=== PATIENT | female | born 1980 | race Caucasian/White ===

== ENCOUNTER 2025-03-14 14:36 | Observation (INO) ==
[2025-03-14] MEDS ORDERED: MoRPHine SULFATE 2 MG/ML CARP IV PRN (14:48)
[2025-03-14] MEDS: MoRPHine SULFATE 4 MG/ML 1 ML CARP\\VIAL IV STA (15:09)
[2025-03-14] MEDS: ONDANSETRON INJ 2 MG/ML 2 ML VIAL IV STA (15:10)
[2025-03-14] MEDS: HYDROmorphone INJ 0.5 MG/0.5 ML SYR IV STA (15:10)
[2025-03-14] MEDS: SODIUM CHLORIDE 0.9% 500 ML IV ONE (15:10)
--- NOTE | 2025-03-14 15:12 | Emergency Department Note ---
Impression & Plan Bradycardia, Dizziness ED Provider Note NAME: BABATUNDE RETANA AGE: 45 SEX: F : 1980 ARRIVES VIA: Ambulance INFORMANT: [Patient] ED PROVIDER(S): [Shawn Delatorre MD] CHIEF COMPLAINT: Bradycardia HISTORY OF PRESENT ILLNESS: Patient is a 45-year-old female who was sent from the [facility] [place] after having a bladder sling procedure. The patient was bradycardic when she was initially seen but it was sinus bradycardia. During the procedure, her heart rate dropped to below 20 and there was a long pause and a short period of time with no pulse. She received a very small amount of push dose IV epinephrine. The patient apparently responded well and did not require CPR. The patient admits to recently feeling short of breath as well as being lightheaded and dizzy, especially with position change. She has a new watch that has been alerting her of a lower heart rate and low blood pressure. She has no known cardiac disease. No known tick bite. Currently, she complains of pain at the surgical site. She is nauseated. PMHx/PSHx/Social Hx: See Below PHYSICAL EXAM: GENERAL: Patient is in no acute distress. HEENT: No acute trauma, normocephalic atraumatic, mucous membranes moist, no nasal congestion. NECK: No stridor, no adenopathy, no meningismus, trachea is midline. LUNGS: Clear to auscultation bilaterally, no wheeze, no rhonchi, breath sounds equal. HEART: Subtle systolic murmur, regular rate and rhythm. ABDOMEN: Soft, no distention. EXTREMITIES: No cyanosis, full range of motion of all the joints without pain or difficulty. Moderate bilateral pedal edema. NEUROLOGIC: Oriented x 3, no acute motor or sensory deficits, no focal weakness. SKIN: No jaundice, no diaphoresis. DIFFERENTIAL DIAGNOSIS: Dysrhythmia, heart block, electrolyte imbalance, Lyme disease, medication reaction, among others. EMERGENCY DEPARTMENT PROCEDURES: MEDICAL DECISION MAKING: There is no leukocytosis or concerning anemia. There is a normal platelet count. No coagulopathy. There is a slight elevation of the creatinine, no electrolyte abnormality in need of emergent correction. No concerning liver enzyme elevation. BNP is not elevated making heart failure unlikely. ECG shows a sinus bradycardia, no ischemia. Cardiac enzyme testing x 1 is not consistent with acute cardiac injury. Patient appears to be in a euthyroid state. Lyme disease testing is pending. Chest x-ray does not show pneumonia, mediastinal widening or heart failure. On exam, the patient's only complaint was pain in the lower abdomen where she had her surgical procedure. She was bradycardic but not hypotensive. The patient was given a 500 cc saline bolus. She was given IV Zofran for nausea, IV Dilaudid for pain. Given the bradycardia, given the prolonged pause noted with her cardiac monitoring at the outpatient center, given the brief loss of pulse, she is in need of a hospital stay and further cardiac monitoring. She can be assessed by cardiology for the possibility of pacemaker need. Of note, the patient did apparently recently start propranolol for psychiatric reasons. Certainly, this beta-danya could be responsible for her presentation today. I spoke with the patient, I did speak with case management. The on-call hospitalist was consulted. Prior/Outside records/notes reviewed: Today's EMS notes describing her presentation and transport to this hospital. ECG per my interpretation: Indication was bradycardia. The ECG shows a sinus bradycardia with a rate of 52. There is no ST elevation, no PVCs. There is poor R wave progression. There are no PVCs. QTc is 468. Continuous Cardiac Monitoring per my interpretation: An order was placed for continuous cardiac monitoring. The monitor shows a rate of 53 with sinus bradycardia. Imaging/x-ray results per my interpretation: Chest x-ray does not show CHF, pneumonia or pneumothorax. Chronic Medical/Social conditions affecting care: None Care/Management discussed with: Case management, the on-call hospitalist. Level of care consideration(s): After review of the information above and other included data: --I believe the patient requires escalation of care to admission DISPOSITION: Admission Past Med/Surg History Problem List (Updated 03/14/25 @ 16:51 by Shawn Delatorre MD) Dizziness (Acute) Bradycardia (Acute) Medical History Anxiety Social History Smoking Status: Never smoker Preferred Language: Tuvaluan Feels Safe at Home: Yes Allergies Allergies Allergy/AdvReac Type Severity Reaction Status Date / Time cefdinir Allergy Unknown Unknown Unverified 03/14/25 16:04 metoclopramide [From Reglan] Allergy Unknown Unknown Unverified 03/14/25 16:04 morphine Allergy Unknown Unknown Unverified 03/14/25 16:04 Home Meds Home Medications Medication Instructions Recorded Confirmed aripiprazole 10 mg tablet 10 mg PO DAILY 03/14/25 03/14/25 dextroamphetamine-amphetamine 20 20 mg PO DAILY 03/14/25 03/14/25 mg tablet (Adderall) esomeprazole magnesium 40 mg 40 mg PO DAILY 03/14/25 03/14/25 capsule,delayed release hydrochlorothiazide 25 mg tablet 25 mg PO DAILY 03/14/25 03/14/25 hydroxyzine HCl 10 mg tablet 10 mg PO TID PRN anxiety 03/14/25 03/14/25 lorazepam 0.5 mg tablet 0.5 mg PO DAILY PRN Anxiety 03/14/25 03/14/25 propranolol 10 mg tablet 10 mg PO HS 03/14/25 03/14/25 sertraline 50 mg tablet 50 mg PO DAILY 03/14/25 03/14/25 tramadol 50 mg tablet 50 mg PO DIRECTED PRN Pain 03/14/25 03/14/25 Results & Data (ED) Vital Signs Vital Signs - 24 hr 03/14/25 14:43 03/14/25 14:43 03/14/25 14:43 Temperature 36.6 C Temperature Source Temporal Artery Scan Pulse Rate 53 L Pulse Rate [Apical] Respiratory Rate 18 Respiratory Effort / Characteristics Non-Labored Spontaneous Respiratory Depth Normal Respiratory Pattern Regular Blood Pressure 122/68 Blood Pressure [Left Arm] Blood Pressure Mean 86 Blood Pressure Mean [Left Arm] Blood Pressure Position Sitting Blood Pressure Position [Left Arm] Pulse Oximetry 97 97 97 Oxygen Delivery Method Room Air Room Air Room Air Sepsis Recent Fever Within 48 Hours No Sepsis New/Unexplained Change in Mental Status N/A Sepsis Action Taken by Nursing No Action Required 03/14/25 15:12 03/14/25 15:17 03/14/25 16:00 Temperature Temperature Source Pulse Rate 52 L Pulse Rate [Apical] 51 L 47 L Respiratory Rate 18 14 Respiratory Effort / Characteristics Non-Labored Spontaneous Non-Labored Spontaneous Respiratory Depth Normal Normal Respiratory Pattern Regular Regular Blood Pressure Blood Pressure [Left Arm] 120/67 103/57 L Blood Pressure Mean Blood Pressure Mean [Left Arm] 84 72 Blood Pressure Position Blood Pressure Position [Left Arm] Sitting Semi-fowlers Pulse Oximetry 95 98 Oxygen Delivery Method Room Air Room Air Sepsis Recent Fever Within 48 Hours Sepsis New/Unexplained Change in Mental Status Sepsis Action Taken by Prison Medications Current Medication List: was personally reviewed by me Laboratory Data Attestation: I reviewed the patient's lab results. 03/14/25 15:05 03/14/25 15:05 Lab Results 03/14/25 Range/Units 15:05 WBC 4.44 L (4.8-10.8) K/ul RBC 4.17 L (4.20-5.40) M/uL Hgb 12.3 (12.0-16.0) g/dl Hct 36.5 L (37.0-47.0) % MCV 87.5 (80.0-100.0) fL MCH 29.5 (25.0-34.0) pg MCHC 33.7 (32.0-36.0) g/dL RDW Std Deviation 43.6 (36.4-46.3) fL RDW Coeff of [place] 13.6 (11.5-14.5) % Plt Count 224 (130-400) K/uL MPV 11.4 (9.4-12.4) fL Immature Gran % (Auto) 0.2 % Neut % (Auto) 84.7 % Lymph % (Auto) 12.2 % Hitchcock % (Auto) 1.8 % Eos % (Auto) 0.9 % Baso % (Auto) 0.2 % Neut # (Auto) 3.76 (1.40-6.50) K/uL Lymph # (Auto) 0.54 L (1.20-3.40) K/uL Hitchcock # (Auto) 0.08 L (0.11-0.59) K/uL Eos # (Auto) 0.04 (0.00-0.50) K/uL Baso # (Auto) 0.01 (0.00-0.20) K/uL Immature Gran # (Auto) 0.01 (0.01-0.20) K/uL PT 10.7 (9.0-12.0) Seconds INR 1.0 (0.9-1.1) APTT 25 (21-31) Seconds PTT Ratio 0.9 Sodium 138 (136-145) mmol/L Potassium 3.7 (3.5-5.1) mmol/L Chloride 102 (98-107) mmol/L Carbon Dioxide 31 (21-32) mmol/L Anion Gap 5 (3-11) BUN 17 (6-23) mg/dl Creatinine 1.27 H (0.6-1.2) mg/dl Est Cr Clr Drug Dosing Not Reportable eGFR 52.49 BUN/Creatinine Ratio 13.4 (10-20) Glucose 127 H (70-99(Fasting)) mg/dl Calcium 8.8 (8.6-10.3) mg/dl Magnesium 2.3 (1.7-2.4) mg/dl Total Bilirubin 0.4 (0.2-1.0) mg/dl AST 29 (13-39) U/L ALT 22 (7-52) U/L Alkaline Phosphatase 72 (34-104) U/L Troponin I High Sens 4.5 (0-14) pg/ml B-Natriuretic Peptide 81 (0-100) pg/ml Total Protein 6.8 (6.0-8.3) gm/dl Albumin 4.2 (3.4-5.0) gm/dl Globulin 2.6 (2.5-4.0) gm/dl Albumin/Globulin Ratio 1.6 (0.9-2) TSH 0.730 (0.300-4.500) uIu/ml Administered Medications Hydromorphone HCl (Hydromorphone Inj 0.5 Mg/0.5 Ml Syr) 0.5 mg IV Q15M PRN PRN Reason: Pain Stop: 03/28/25 15:03 Last Admin: 03/14/25 16:15 Dose: 0.5 mg Documented By: MANE Lactated Ringer's (Lr) 1,000 mls @ 100 mls/hr IV .Q10H GARY Stop: 03/15/25 07:00 Last Admin: 03/14/25 16:36 Dose: 100 mls/hr Documented By: MANE Discontinued Medications Hydromorphone HCl (Hydromorphone Inj 0.5 Mg/0.5 Ml Syr) 0.5 mg IV NOW STA Stop: 03/14/25 15:05 Last Admin: 03/14/25 15:10 Dose: 0.5 mg Documented By: DARIN Sodium Chloride (Nss) 500 mls @ 999 mls/hr IV .Q31M ONE Stop: 03/14/25 15:18 Last Infusion: 03/14/25 16:18 Dose: Infused Documented By: Admin: 03/14/25 15:10 Dose: 999 mls/hr Documented By: DARIN Morphine Sulfate (Morphine Sulfate 4 Mg/Ml 1 Ml Carp\Vial) 4 mg IV NOW STA Stop: 03/14/25 14:49 Last Admin: 03/14/25 15:09 Dose: Not Given Documented By: DARIN Ondansetron HCl (Ondansetron Inj 2 Mg/Ml 2 Ml Vial) 4 mg IV NOW STA Stop: 03/14/25 14:49 Last Admin: 03/14/25 15:10 Dose: 4 mg Documented By: DARIN Imaging Data Radiologist's Impression: Chest X-Ray 03/14/25 14:43 XR chest 1V portable CLINICAL HISTORY: weakness COMPARISON STUDY: None FINDINGS: Heart size and pulmonary vasculature are normal. No consolidation or pleural effusion. No pneumothorax. IMPRESSION: No acute findings. ACT 112: Negative or not required by law. Electronically signed by: Clayton Ashley M.D. 03/14/2025 3:29 PM Discharge Plan Visit Data Chief Complaint: Bradycardia Stated Complaint: BRADYCARDIA ED Provider: Shawn Delatorre Discharge Problem: Bradycardia, Dizziness Patient Disposition: Admitted As Inpatient Condition: Serious Forms Stand Alone Forms: My [facility] Prescriptions Prescriptions: No Action tramadol 50 mg tablet 50 mg PO DIRECTED PRN (Reason: Pain) propranolol 10 mg tablet 10 mg PO HS lorazepam 0.5 mg tablet 0.5 mg PO DAILY PRN (Reason: Anxiety) esomeprazole magnesium 40 mg capsule,delayed release(DR/EC) 40 mg PO DAILY dextroamphetamine-amphetamine [Adderall] 20 mg tablet 20 mg PO DAILY hydrochlorothiazide 25 mg tablet 25 mg PO DAILY hydroxyzine HCl 10 mg tablet 10 mg PO TID PRN (Reason: anxiety ) sertraline 50 mg tablet 50 mg PO DAILY aripiprazole 10 mg tablet 10 mg PO DAILY Referrals Referrals: María Elena Anaya CRNP [Primary Care Provider] -
[2025-03-14 15:26] LABS: Hematocrit (blood only) 36.5 % (37.0-47.0); Hemoglobin 12.3 g/dl (12.0-16.0); Immature Granulocytes # (auto) 0.01 K/uL (0.01-0.20); Immature Granulocytes % (auto) 0.2 %; Mean Corpuscular Hemoglobin 29.5 pg (25.0-34.0); Mean Corpuscular Volume 87.5 fL (80.0-100.0); Platelet Count 224 K/uL (130-400); RDW Standard Deviation 43.6 fL (36.4-46.3); Red Blood Count 4.17 M/uL (4.20-5.40); White Blood Count 4.44 K/ul (4.8-10.8)
--- NOTE | 2025-03-14 15:30 | XRay Report ---
XR chest 1V portable CLINICAL HISTORY: weakness COMPARISON STUDY: None FINDINGS: Heart size and pulmonary vasculature are normal. No consolidation or pleural effusion. No p neumothorax. IMPRESSION: No acute findings. ACT 112: Negative or not required by law. Electronically signed by: Clayton Ashley M.D. 03/14/2025 3:29 PM
[2025-03-14 15:43] LABS: Alanine Aminotransferase 22 U/L (7-52); Albumin Globulin Ratio 1.6 (0.9-2); Alkaline Phosphatase 72 U/L (34-104); Anion Gap 5 (3-11); Bilirubin,Total 0.4 mg/dl (0.2-1.0); Blood Urea Nitrogen 17 mg/dl (6-23); Calcium 8.8 mg/dl (8.6-10.3); Carbon Dioxide 31 mmol/L (21-32); Chloride 102 mmol/L (98-107); Globulin 2.6 gm/dl (2.5-4.0); Glucose 127 mg/dl (70-99(Fasting)); Magnesium 2.3 mg/dl (1.7-2.4); Potassium 3.7 mmol/L (3.5-5.1); Sodium 138 mmol/L (136-145); Total Protein 6.8 gm/dl (6.0-8.3)
[2025-03-14 15:52] LABS: INR 1.0 (0.9-1.1); Partial Thromboplastin Time 25 Seconds (21-31); Prothrombin Time 10.7 Seconds (9.0-12.0)
[2025-03-14 15:58] LABS: Thyroid Stimulating Hormone 0.730 uIu/ml (0.300-4.500)
[2025-03-14] MEDS: HYDROmorphone INJ 0.5 MG/0.5 ML SYR IV PRN ×2 (16:15→21:53)
--- NOTE | 2025-03-14 16:16 | History & Physical Report ---
Date of Service March 14, 2025 Assessment & Plan (1) Symptomatic bradycardia: (2) Sinus pause: (3) GERD (gastroesophageal reflux disease): (4) JUMANA (acute kidney injury): Plan 45 yo female with cystocele c/b stress incontinence, ADHD, JARRET, GERD, chronic pain syndorme who presents from outpatient [facility] for syncopal episode and prolonged sinus pause likely 2/2 anesthetic effects, medications, and possible underlying bradycardia. #Sinus Pause #Sinus Bradycardia -likely multifactorial, in setting of sinus bradycardia, propranolol, anesthetic use -currently asymptomatic Plan: -check echo, telemetry monitoring -check TSH for metabolic workup -cardiology consult, appreciate recs #JUMANA -fluids ordered -recheck in AM #Acute Pain #Chronic Pain Syndrome #Cystocele -s/p bladder lift procedure Plan: -hold tramadol -start oxycodone, prn dilaudid #ADHD #JARRET -on ativan, propranolo, abilify, atarax, adderall, sertraline at home -hold ativan, continue other home meds I spent a total of 70 minutes in direct patient care, including [id number] time with the patient and/or family, reviewing medical records, ordering and reviewing diagnostic tests, and coordinating care with other healthcare providers. This time includes: history taking, physical examination, medical decision making, counseling, ECG interpretation, imaging interpretation, lab int erpretation, orders, and education, excluding time spent in the performance of separately billed services. History of Present Illness Chief Complaint: -sycnopal episode Primary Care Provider: LAINA Sun 45 yo female with cystocele c/b stress incontinence, ADHD, JARRET, GERD, chronic pain syndorme who presents from outpatient [facility] clinic for syncopal episode and prolonged sinus pause. Was getting bladder lift procedure for cystocele when her HR dropped to 20s then had prolonged sinus pause with no pulse. Given epi with improved HR and return of pulse. Procedure completed without further complications. No chest compressions given. In the ED, given fluids and admitted to medicine. Patient seen and examined at bedside. Patient is scared today. States she does not remember episode. Began taking propranolol a few weeks ago for anxiety as it was prescribed to her. Takes all medications as prescribed. Has low HR at home. Has been lightheaded on and off for past few weeks. No chest pain, SOB, other symptoms. Has some pain post procedure. No tobacco use, no alcohol use, no drug use, full code. Allergies Allergy/AdvReac Type Severity Reaction Status Date / Time cefdinir Allergy Unknown Unknown Unverified 03/14/25 16:04 metoclopramide [From Reglan] Allergy Unknown Unknown Unverified 03/14/25 16:04 morphine Allergy Unknown Unknown Unverified 03/14/25 16:04 Home Medications Medication Instructions Recorded Confirmed Type aripiprazole 10 mg tablet 10 mg PO DAILY 03/14/25 03/14/25 History dextroamphetamine-amphetamine 20 20 mg PO DAILY 03/14/25 03/14/25 History mg tablet (Adderall) esomeprazole magnesium 40 mg 40 mg PO DAILY 03/14/25 03/14/25 History capsule,delayed release hydrochlorothiazide 25 mg tablet 25 mg PO DAILY 03/14/25 03/14/25 History hydroxyzine HCl 10 mg tablet 10 mg PO TID PRN anxiety 03/14/25 03/14/25 History lorazepam 0.5 mg tablet 0.5 mg PO DAILY PRN Anxiety 03/14/25 03/14/25 History propranolol 10 mg tablet 10 mg PO HS 03/14/25 03/14/25 History sertraline 50 mg tablet 50 mg PO DAILY 03/14/25 03/14/25 History tramadol 50 mg tablet 50 mg PO DIRECTED PRN Pain 03/14/25 03/14/25 History Past Med/Surg History Problem List (Updated 03/14/25 @ 21:32 by Kamran Machado MD) JUMANA (acute kidney injury) GERD (gastroesophageal reflux disease) Symptomatic bradycardia Sinus pause Dizziness (Acute) Bradycardia (Acute) Medical History Anxiety Social History Smoking Status: Never smoker Hx Alcohol Use: No Hx Substance Use: No Preferred Language: Micronesian Communication Ability: Effective 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 External ears normal. No rhinorrhea. Moist mucous membranes. Neck: Supple, full range of motion, no observable masses, No meningeal sign. Lungs: No Respiratory distress. CV: bradycardic, regular rhythm Abdomen: Soft, nondistended, No rebound tenderness. MSK: No joint swelling, no redness. Skin: No rashes, petechiae, lesions. Normal color per patient. Neuro: Normal Gait, Grossly intact. Psych: Appropriate for situation. Results & Data Results & Data Vital Signs (Past 12 Hours) Vital Signs Temp Pulse Pulse Resp BP BP Pulse Ox 03/14/25 16:00 47 L 14 103/57 L 98 03/14/25 15:17 51 L 18 120/67 95 03/14/25 15:12 52 L 03/14/25 14:43 97 03/14/25 14:43 97 03/14/25 14:43 36.6 C 53 L 18 122/68 97 O2 Del Method 03/14/25 16:00 Room Air 03/14/25 15:17 Room Air 03/14/25 15:12 03/14/25 14:43 Room Air 03/14/25 14:43 Room Air 03/14/25 14:43 Room Air Laboratory Results -personally reviewed, creatinine elevated unclear baseline, mild leukopenia Medications Administered Hydromorphone HCl (Hydromorphone Inj 0.5 Mg/0.5 Ml Syr) 0.5 mg IV Q15M PRN PRN Reason: Pain Stop: 03/28/25 15:03 Last Admin: 03/14/25 18:23 Dose: 0.5 mg Documented By: Admin: 03/14/25 16:15 Dose: 0.5 mg Documented By: MANE Lactated Ringer's (Lr) 1,000 mls @ 100 mls/hr IV .Q10H GARY Stop: 03/15/25 07:00 Last Admin: 03/14/25 16:36 Dose: 100 mls/hr Documented By: MANE Promethazine HCl (Phenergan) 6.25 mg in 50.25 mls @ 201 mls/hr IV Q6H PRN PRN Reason: Nausea And Vomiting Stop: 04/13/25 18:30 Last Infusion: 03/14/25 19:05 Dose: Infused Documented By: Admin: 03/14/25 18:48 Dose: 201 mls/hr Documented By: KEIKO Code Status & VTE Plan Code Status -full code VTE Prophylaxis Plan VTE Prophylaxis will be ordered: Yes
[2025-03-14] MEDS: LACTATED RINGER'S 1,000 ML IV SCH (16:36)
--- NOTE | 2025-03-14 17:19 | Cardiology Consultation ---
Date of Consultation March 14, 2025 Assessment & Plan (1) Bradycardia: Plan 45-year-old female referred for marked sinus bradycardia observed during urologic procedure. Baseline bradycardia previously noted with increasing severity over the past month since initiating propranolol. Suspect mixed component of beta danya and vagal response during surgery. Wearable heart rate monitor demonstrates appropriate heart rate elevation with daytime activities but bradycardia at times especially at night. Recommendations continue telemetry and echocardiogram as ordered. Adequate pain control Repeat EKG in a.m. Lyme screen pending Cardiology we will reevaluate in a.m. No further propranolol History of Present Illness Reason for Consultation: Sinus bradycardia [facility] Present Illness Patient is a 45-year-old female Referred to the emergency room from [facility] surgery center with noted bradycardia during urogynecologic procedure. History obtained from discussion with patient and her son Kp, review of records Patient carries a history of 1. Obesity status post gastric bypass surgery 2011 2. Chronic anxiety depression with insomnia with recent addition of propranolol 10 mg nightly 3. Lymphedema Patient during bladder sling procedure today noted to be bradycardic at initiation of case which became more profound during the procedure at times requiring transient dose of epinephrine. Patient arousing post procedure witho ut complaint. Patient aware of being bradycardic especially over the last month. Wears heart rate watch demonstrating bradycardia as well as normal heart rate response with activities. Patient is aware of occasional lightheadedness and dizziness but chronic. No syncope or near syncope. No fevers chills or unexplained infections. No rash or tick exposure. No acute weight loss or gain. Mild chronic lymphedema. No worsening shortness of breath orthopnea. Struggles with sleep at night and propranolol 10 mg recently added to aid in anxiety and sleep. No prior history of cardiac disease, myocardial infarction, congestive heart failure. No history rheumatic fever or scarlet fever Currently having discomfort at surgical site but no other complaints heart rate 48-52 EKG sinus bradycardia without AV block, ST segment abnormalities Allergies Allergy/AdvReac Type Severity Reaction Status Date / Time cefdinir Allergy Unknown Unknown Unverified 03/14/25 16:04 metoclopramide [From Reglan] Allergy Unknown Unknown Unverified 03/14/25 16:04 morphine Allergy Unknown Unknown Unverified 03/14/25 16:04 Home Medications Medication Instructions Recorded Confirmed Type aripiprazole 10 mg tablet 10 mg PO DAILY 03/14/25 03/14/25 History dextroamphetamine-amphetamine 20 20 mg PO DAILY 03/14/25 03/14/25 History mg tablet (Adderall) esomeprazole magnesium 40 mg 40 mg PO DAILY 03/14/25 03/14/25 History capsule,delayed release hydrochlorothiazide 25 mg tablet 25 mg PO DAILY 03/14/25 03/14/25 History hydroxyzine HCl 10 mg tablet 10 mg PO TID PRN anxiety 03/14/25 03/14/25 History lorazepam 0.5 mg tablet 0.5 mg PO DAILY PRN Anxiety 03/14/25 03/14/25 History propranolol 10 mg tablet 10 mg PO HS 03/14/25 03/14/25 History sertraline 50 mg tablet 50 mg PO DAILY 03/14/25 03/14/25 History tramadol 50 mg tablet 50 mg PO DIRECTED PRN Pain 03/14/25 03/14/25 History Patient History Medical History Anxiety Social History Smoking Status: Never smoker Preferred Language: Qatari Feels Safe at Home: Yes Physical Exam Constitutional: no acute distress Eyes: PERRL, conjunctivae normal, anicteric sclerae ENMT: external ear and nose normal, oropharynx normal Neck: trachea midline, no thyromegaly Respiratory: normal respiratory effort, lungs clear to auscultation Cardiovascular: Rate/Rhythm: regular rate, regular rhythm and + bradycardic Heart Sounds: no murmur Vessels: no JVD, + abnormal carotid upstroke, + femoral pulses abnormal and + radial pulses abnormal Extremities: no edema Gastrointestinal (Abdomen): normal bowel sounds, soft, nontender, no hepatosplenomegaly Musculoskeletal: no cyanosis or clubbing, extremities motor strength 5/5 Results & Data Vital Signs (Past 12 Hours) Vital Signs Temp Pulse Pulse Resp BP BP Pulse Ox 03/14/25 16:31 114/54 L 03/14/25 16:31 114/54 L 03/14/25 16:31 114/54 L 03/14/25 16:31 114/54 L 03/14/25 16:30 47 L 13 96 03/14/25 16:03 47 L 18 96 03/14/25 16:02 103/57 L 03/14/25 16:02 103/57 L 03/14/25 16:00 47 L 14 103/57 L 98 03/14/25 15:54 46 L 17 96 03/14/25 15:42 52 L 12 95 03/14/25 15:30 123/65 03/14/25 15:30 123/65 03/14/25 15:30 123/65 03/14/25 15:27 54 L 16 94 03/14/25 15:17 51 L 18 120/67 95 03/14/25 15:12 52 L 03/14/25 14:54 48 L 19 95 03/14/25 14:43 97 03/14/25 14:43 97 03/14/25 14:43 36.6 C 53 L 18 122/68 97 O2 Del Method 03/14/25 16:31 03/14/25 16:31 03/14/25 16:31 03/14/25 16:31 03/14/25 16:30 03/14/25 16:03 03/14/25 16:02 03/14/25 16:02 03/14/25 16:00 Room Air 03/14/25 15:54 03/14/25 15:42 03/14/25 15:30 03/14/25 15:30 03/14/25 15:30 03/14/25 15:27 03/14/25 15:17 Room Air 03/14/25 15:12 03/14/25 14:54 03/14/25 14:43 Room Air 03/14/25 14:43 Room Air 03/14/25 14:43 Room Air Laboratory Results Laboratory Results - last 24 hr 03/14/25 15:05 WBC 4.44 L RBC 4.17 L Hgb 12.3 Hct 36.5 L MCV 87.5 MCH 29.5 MCHC 33.7 RDW Std Deviation 43.6 RDW Coeff of [place] 13.6 Plt Count 224 MPV 11.4 Immature Gran % (Auto) 0.2 Neut % (Auto) 84.7 Lymph % (Auto) 12.2 Story % (Auto) 1.8 Eos % (Auto) 0.9 Baso % (Auto) 0.2 Neut # (Auto) 3.76 Lymph # (Auto) 0.54 L Story # (Auto) 0.08 L Eos # (Auto) 0.04 Baso # (Auto) 0.01 Immature Gran # (Auto) 0.01 PT 10.7 INR 1.0 APTT 25 PTT Ratio 0.9 Sodium 138 Potassium 3.7 Chloride 102 Carbon Dioxide 31 Anion Gap 5 BUN 17 Creatinine 1.27 H Est Cr Clr Drug Dosing Not Reportable eGFR 52.49 BUN/Creatinine Ratio 13.4 Glucose 127 H Calcium 8.8 Magnesium 2.3 Total Bilirubin 0.4 AST 29 ALT 22 Alkaline Phosphatase 72 Troponin I High Sens 4.5 B-Natriuretic Peptide 81 Total Protein 6.8 Albumin 4.2 Globulin 2.6 Albumin/Globulin Ratio 1.6 TSH 0.730 Lyme Disease Screen Pending PG Care Time/CCT Total # of Minutes Spent Total Time Spent with Patient: Total time spent is greater than 50% in coordination of care (as documented) at patient's floor/unit and/or counseling patient: Coding Level of Care Code 58745 IN/OBS CONSULT LVL 4,60M Diagnoses Bradycardia R00.1
[2025-03-14] MEDS: PROMETHAZINE 6.25 MG/50.25 ML BAG IV PRN (18:48)
[2025-03-14] MEDS ORDERED: Patient's HEIGHT &/or WEIGHT Needed SCH (19:30)
[2025-03-14] MEDS: HEPARIN SOD 5,000 UNIT/0.5 ML VIAL SQ SCH (21:54)
[2025-03-14] MEDS: LACTATED RINGER'S 500 ML IV ONE (23:31)
[2025-03-15] MEDS: ONDANSETRON INJ 2 MG/ML 2 ML VIAL IV PRN (01:23)
[2025-03-15] MEDS: ATROPINE SULFATE 0.1 MG/ML 10ML SYR IV PRN (03:43)
[2025-03-15 06:30] LABS: Hematocrit (blood only) 32.1 % (37.0-47.0); Hemoglobin 10.7 g/dl (12.0-16.0); Mean Corpuscular Hemoglobin 29.2 pg (25.0-34.0); Mean Corpuscular Volume 87.5 fL (80.0-100.0); Platelet Count 186 K/uL (130-400); RDW Standard Deviation 43.5 fL (36.4-46.3); Red Blood Count 3.67 M/uL (4.20-5.40); White Blood Count 7.07 K/ul (4.8-10.8)
[2025-03-15 06:57] LABS: Anion Gap 4.0 (3-11); Blood Urea Nitrogen 12.0 mg/dl (6-23); Calcium 8.5 mg/dl (8.6-10.3); Carbon Dioxide 30.0 mmol/L (21-32); Chloride 106.0 mmol/L (98-107); Creatinine Clr Calc Pharmacy 96.9 ml/min; Glucose 122.0 mg/dl (70-99(Fasting)); Magnesium 2.0 mg/dl (1.7-2.4); Potassium 3.2 mmol/L (3.5-5.1); Sodium 140.0 mmol/L (136-145)
--- NOTE | 2025-03-15 08:45 | Cardiology Progress Note ---
Date of Service March 15, 2025 Assessment & Plan (1) Bradycardia: Plan 45-year-old female referred for marked sinus bradycardia observed during urologic procedure. Baseline bradycardia previously noted with increasing severity over the past month since initiating propranolol. Suspect mixed component of beta danya and vagal response during surgery. Wearable heart rate monitor demonstrates appropriate heart rate elevation with daytime activities but bradycardia at times especially at night. Recommendations continue telemetry and echocardiogram as ordered. Adequate pain control Repeat EKG in a.m. Lyme screen pending Cardiology we will reevaluate in a.m. No further propranolol 03/15/2025 Patient feels fatigued this morning. Heart rates bradycardic overnight but respond to activity with normal heart rate response. 1. Sinus bradycardia with borderline chronotropic incompetence. No further propranolol May need to discontinue Abilify Recommend 7-day Zio patch monitor on discharge Follow-up with EP Given appropriate heart rate response to activity no indication for pacer at this time. Admission and Anticipated Discharge Date Admission Date: March 14, 2025 Subjective Patient was seen and personally examined. Complains of surgical incision discomfort. No dizziness lightheadedness syncope or near syncope. Telemetry overnight sinus bradycardia in the 30s to 40s but with appropriate heart rate response with activity. No chest pains or shortness of breath Review of Systems Review of Systems: All systems reviewed & are unremarkable except as noted in Subjective Physical Exam Constitutional: no acute distress Eyes: PERRL, conjunctivae normal, anicteric sclerae ENMT: external ear and nose normal, oropharynx normal Neck: trachea midline, no thyromegaly Respiratory: normal respiratory effort, lungs clear to auscultation Cardiovascular: Rate/Rhythm: regular rate, regular rhythm and + bradycardic Heart Sounds: no murmur Vessels: no JVD, + abnormal carotid upstroke, + femoral pulses abnormal and + radial pulses abnormal Extremities: no edema Gastrointestinal (Abdomen): normal bowel sounds, soft, nontender, no hepatosplenomegaly Musculoskeletal: no cyanosis or clubbing, extremities motor strength 5/5 Results & Data Vital Signs (Past 12 Hours) Vital Signs Temp Pulse Pulse Resp BP Pulse Ox O2 Del Method 03/15/25 08:22 36.5 C 48 L 20 86/47 L 97 Room Air 03/15/25 03:40 121/71 03/15/25 02:51 36.3 C L 37 L 16 86/48 L 95 Room Air 03/15/25 00:54 93/53 L 03/15/25 00:19 38 L 03/15/25 00:00 37 L 03/14/25 23:40 95/46 L 03/14/25 22:31 36.3 C L 35 L 16 85/47 L 94 Room Air Laboratory Results Laboratory Results - last 24 hr 03/14/25 03/14/25 03/15/25 15:05 23:56 06:11 WBC 4.44 L 7.07 RBC 4.17 L 3.67 L Hgb 12.3 10.7 L Hct 36.5 L 32.1 L MCV 87.5 87.5 MCH 29.5 29.2 MCHC 33.7 33.3 RDW Std Deviation 43.6 43.5 RDW Coeff of [place] 13.6 13.5 Plt Count 224 186 MPV 11.4 11.4 Immature Gran % (Auto) 0.2 Neut % (Auto) 84.7 Lymph % (Auto) 12.2 [place] % (Auto) 1.8 Eos % (Auto) 0.9 Baso % (Auto) 0.2 Neut # (Auto) 3.76 Lymph # (Auto) 0.54 L [place] # (Auto) 0.08 L Eos # (Auto) 0.04 Baso # (Auto) 0.01 Immature Gran # (Auto) 0.01 PT 10.7 INR 1.0 APTT 25 PTT Ratio 0.9 Sodium 138 140 Potassium 3.7 3.2 L Chloride 102 106 Carbon Dioxide 31 30 Anion Gap 5 4 BUN 17 12 Creatinine 1.27 H 0.96 D Est Cr Clr Drug Dosing Not Reportable 96.9 eGFR 52.49 73.44 BUN/Creatinine Ratio 13.4 12.5 Glucose 127 H 122 H Lactate 1.0 Calcium 8.8 8.5 L Phosphorus 3.0 Magnesium 2.3 2.0 Total Bilirubin 0.4 AST 29 ALT 22 Alkaline Phosphatase 72 Troponin I High Sens 4.5 B-Natriuretic Peptide 81 Total Protein 6.8 Albumin 4.2 Globulin 2.6 Albumin/Globulin Ratio 1.6 TSH 0.730 Lyme Disease Screen Negative PG Care Time/CCT Total # of Minutes Spent Total Time Spent with Patient: Total time spent is greater than 50% in coordination of care (as documented) at patient's floor/unit and/or counseling patient: Coding Level of Care Code 94496 SUB INP/OBS CARE 350MIN Diagnoses Bradycardia R00.1
[2025-03-15] MEDS: SERTRALINE HCL 50 MG TABLET PO SCH (09:54)
--- NOTE | 2025-03-15 10:22 | Urology Consultation ---
Date of Consultation March 15, 2025 Assessment & Plan (1) Dysuria: (2) Gross hematuria: Plan 45-year-old female who is currently admitted due to a bradycardic episode at the [facility] yesterday after having a urethral sling placed per reports (no operative note available to review). Urology was consulted for postoperative pain and hematuria. Labs today show a white blood count of 7.07, hemoglobin of 10.7, and creatinine of 0.96. Creatinine was initially 1.27 on admission. -Patient reports dysuria and hematuria, which are expected on postoperative day 1 -Patient is voiding spontaneously and feels as if pain is relatively well controlled -These are expected symptoms immediately following a sling procedure, which I assume is what she had given that I do not have any operative not to review -No intervention needed. Urology to sign off. Patient should follow up with Dr. Cristina. History of Present Illness Attending Physician: Gonzalo Camilo MD History of Present Illness 45-year-old female who is currently admitted due to a bradycardic episode at the [facility] yesterday after having a urethral sling placed. Urology was consulted for postoperative pain. Labs today show a white blood count of 7.07, hemoglobin of 10.7, and creatinine of 0.96. Creatinine was initially 1.27 on admission. Patient reports dysuria and hematuria, which are expected. Allergies Allergy/AdvReac Type Severity Reaction Status Date / Time cefdinir Allergy Unknown Unknown Unverified 03/14/25 16:04 metoclopramide [From Reglan] Allergy Unknown Unknown Unverified 03/14/25 16:04 morphine Allergy Unknown Unknown Unverified 03/14/25 16:04 Home Medications Medication Instructions Recorded Confirmed Type aripiprazole 10 mg tablet 10 mg PO DAILY 03/14/25 03/14/25 History dextroamphetamine-amphetamine 20 20 mg PO DAILY 03/14/25 03/14/25 History mg tablet (Adderall) esomeprazole magnesium 40 mg 40 mg PO DAILY 03/14/25 03/14/25 History capsule,delayed release hydrochlorothiazide 25 mg tablet 25 mg PO DAILY 03/14/25 03/14/25 History hydroxyzine HCl 10 mg tablet 10 mg PO TID PRN anxiety 03/14/25 03/14/25 History lorazepam 0.5 mg tablet 0.5 mg PO DAILY PRN Anxiety 03/14/25 03/14/25 History propranolol 10 mg tablet 10 mg PO HS 03/14/25 03/14/25 History sertraline 50 mg tablet 50 mg PO DAILY 03/14/25 03/14/25 History tramadol 50 mg tablet 50 mg PO DIRECTED PRN Pain 03/14/25 03/14/25 History Patient History Medical History Anxiety Social History Smoking Status: Never smoker Hx Alcohol Use: No Hx Substance Use: No Preferred Language: Haitian Communication Ability: Effective Conservation Assistant Required: No Beliefs That Will Affect Care: None Current Living Situation: Family Current Living Situation Comment: home with son and daughter in law Feels Safe at Home: Yes Assistive Devices: Contacts and Glasses Physical Exam Physical Exam: General: Alert and oriented, no acute distress HEENT: Normocephalic, mucous membranes moist Pulmonary: Nonlabored respirations Abdomen: Nondistended. No entry incision sites appreciated in lower abdominal area Extremities: Moves all 4 spontaneously Neuro: No gross deficits Skin: Warm, dry, no rashes noted Results & Data Vital Signs (Past 12 Hours) Vital Signs Temp Pulse Pulse Resp BP Pulse Ox O2 Del Method 03/15/25 09:53 95/58 L 03/15/25 08:22 36.5 C 48 L 20 86/47 L 97 Room Air 03/15/25 03:40 121/71 03/15/25 02:51 36.3 C L 37 L 16 86/48 L 95 Room Air 03/15/25 00:54 93/53 L 03/15/25 00:19 38 L 03/15/25 00:00 37 L 03/14/25 23:40 95/46 L 03/14/25 22:31 36.3 C L 35 L 16 85/47 L 94 Room Air PG Care Time/CCT Total # of Minutes Spent Total Time Spent with Patient: Total time spent is greater than 50% in coordination of care (as documented) at patient's floor/unit and/or counseling patient: Coding Level of Care Code 13000 IN/OBS CONSULT LVL 3,45M Diagnoses Dysuria R30.0 Gross hematuria R31.0
[2025-03-15] MEDS: OPTIRAY 320 100ml IV ONE (10:46)
--- NOTE | 2025-03-15 11:40 | CT Scan Report ---
Clinical History: Abdominal pain Technique: Axial computed tomography images were obtained of the abdomen and pelvis after the administration of intravenous contrast. No prior CT is available for comparison. Findings: The liver is overall of normal size, attenuation, and contour with no sign of cirrhosis or significant fatty infiltration. No liver mass lesion is seen. The portal vein is patent. The gallbladder has been removed. There is mild bile duct dilatation that is likely due to the postcholecystectomy state. The spleen is of normal size. No focal splenic lesion is evident. The pancreas appears normal with no sign of acute or chronic pancreatitis and no mass lesion noted. The pancreatic duct is of normal caliber. The adrenal glands appear unremarkable. No definite renal or proximal ureteral calculi are seen on this contrast-enhanced study. There is no hydronephrosis or perinephric stranding. No renal mass lesion is identified. The aorta is of normal caliber. There are multiple small and mildly prominent para-aortic and central mesenteric lymph nodes. No overt abdominal adenopathy is seen. Postsurgical changes are seen of gastric bypass surgery. There is no sign of small bowel obstruction. The colon appears unremarkable. The appendix has been removed. No free intraperitoneal air is identified. There is a small amount of free pelvic fluid No distal ureteral or bladder calculi are seen. There is some air within the urinary bladder that could be due to recent catheterization. No bladder mass lesion is evident. The iliac arteries are of normal caliber. No pelvic adenopathy is noted. The uterus has been removed. There are small follicles in the left ovary There is mild subsegmental atelectasis in both lower lobes. There is a minimal left pleural effusion Mild thoracolumbar degenerative disc disease is seen. No fracture is identified. No focal osseous lesion is seen Impression: 1. Minimal left pleural effusion and mild bilateral lung base atelectasis 2. Small amount of free pelvic fluid, which may be physiologic 3. Possible mild mesenteric adenitis ACT 112: Positive. There are findings on this exam that require communication between the performing entity and the patient following Patient Test Result Information Act ([place] ACT 112) guidelines Electronically signed by Ricci Han 03-15-2025 11:39 AM
[2025-03-15] MEDS: DEXTROAMPHETAMINE/AMPHETAMINE IR 20 MG TAB PO SCH (12:00)
[2025-03-15] MEDS: POTASSIUM CHLORIDE CRTAB 20 MEQ TABCR PO ONE (12:08)
[2025-03-15 12:14] LABS: Hematocrit (blood only) 33.4 % (37.0-47.0); Hemoglobin 11.1 g/dl (12.0-16.0)
[2025-03-15] MEDS: SODIUM CHLORIDE 0.9% 500 ML IV ONE (12:17)
--- NOTE | 2025-03-15 13:40 | Hospitalist Progress Note ---
Date of Service March 15, 2025 Assessment & Plan (1) Symptomatic bradycardia: (2) Sinus pause: (3) GERD (gastroesophageal reflux disease): (4) JUMANA (acute kidney injury): Plan 45 yo female with cystocele c/b stress incontinence, ADHD, JARRET, GERD, chronic pain syndorme who presents from outpatient [facility] clinic for syncopal episode and prolonged sinus pause likely 2/2 anesthetic effects, medications, and possible underlying bradycardia. #Sinus Pause #Sinus Bradycardia -likely multifactorial, in setting of sinus bradycardia, propranolol, anesthetic use 03/14 propranolol discontinued remains in sinus bradycardia high 40s, low 50s Asymptomatic Echocardiogram: Unrevealing TSH normal Evaluated by cardiology service- patient has appropriate heart rate response with activity based on her watch heart rate monitor stop propranolol, No further interventions at this point per cardiology service #JUMANA -fluids ordered - resolved #Acute Pain, s/p bladder lift procedure, Cystocele #Chronic Pain Syndrome Plan: -hold tramadol -start oxycodone, prn dilaudid having increased abdominal pain today Voiding without problems afebrile, no leukocytosis urinalysis: Pending CT abdomen and pelvis: unrevealing 1. Minimal left pleural effusion and mild bilateral lung base atelectasis 2. Small amount of free pelvic fluid, which may be physiologic 3. Possible mild mesenteric adenitis Evaluated by urology service Pain may be expected from bladder lift procedure yesterday continue to monitor closely for now Continue with p.o. oxycodone and IV Dilaudid as needed # Hypotension likely from volume depletion, narcotics possibly contributing BP systolic 80s to 90s 500 cc IV bolus ordered IV NSS 125 cc per hour ordered #ADHD #JARRET -on ativan, propranolo, abilify, atarax, adderall, sertraline at home -hold ativan, continue other home meds lives at home possible d/c in 1-2 days plan of care discussed with patient in detail and at length all questions answered she is understanding, agreeable, comfortable with the plan of care Admission and Anticipated Discharge Date Admission Date: March 14, 2025 Subjective Seen with SUBHASH Bowman at the bedside throughout whole encounter Seen resting in bed, uncomfortable states she is having 6 out of 10 lower abdominal pain, sharp reports pink-tinged urine, but voiding without any problems No fevers or chills no chest pain, dyspnea, palpitations, dizziness Review of Systems Review of Systems: all noted and negative except for above Physical Exam Physical Exam: General- oriented x 3, not in distress, speaks in sentences with no effort or accessory muscle use Eyes- anicteric Neck- no JVD Lungs- clear breath sounds bilaterally, no rales/wheezes Heart- mild bradycardia 50s, regular rhythm; no murmurs Abdomen- normal bowel sounds, nondistended, soft, mild lower abdominal tenderness Extremities- no pretibial edema, no calf tenderness Neuro- alert, oriented x 3; no gross focal neurologic deficits Skin- warm & dry Results & Data Results & Data Vital Signs (Past 12 Hours) Vital Signs Temp Pulse Resp BP Pulse Ox O2 Del Method 03/15/25 11:46 36.3 C L 47 L 12 97/59 L 99 Room Air 03/15/25 09:53 95/58 L 03/15/25 08:22 36.5 C 48 L 20 86/47 L 97 Room Air 03/15/25 03:40 121/71 03/15/25 02:51 36.3 C L 37 L 16 86/48 L 95 Room Air all noted and reviewed including below
--- NOTE | 2025-03-15 13:49 | Electrocardiogram Report ---
Test Reason : Blood Pressure : */* mmHG Vent. Rate : 52 BPM Atrial Rate : 52 BPM P-R Int : 202 ms QRS Dur : 100 ms QT Int : 504 ms P-R-T Axes : 57 17 21 degrees QTcB Int : 468 ms Sinus bradycardia Low voltage QRS Cannot rule out Anterior infarct , age undetermined Abnormal ECG No previous ECGs available Confirmed by Ramiro Bains ([id number]) on 03/15/2025 1:49:06 PM Referred By: REFERRED SELF Confirmed By: Ramiro Bains
--- NOTE | 2025-03-15 13:50 | Electrocardiogram Report ---
Test Reason : Blood Pressure : */* mmHG Vent. Rate : 31 BPM Atrial Rate : 31 BPM P-R Int : 170 ms QRS Dur : 98 ms QT Int : 608 ms P-R-T Axes : 53 22 28 degrees QTcB Int : 436 ms Marked sinus bradycardia Low voltage QRS Abnormal ECG When compared with ECG of 14-Mar-2025 14:49, (unconfirmed) Vent. rate has decreased by 21 bpm Confirmed by Ramiro Bains ([id number]) on 03/15/2025 1:50:04 PM Referred By: REFERRED SELF Confirmed By: Ramiro Bains
[2025-03-15] MEDS: SODIUM CHLORIDE 0.9% 1,000 ML IV SCH (15:58)
[2025-03-15] MEDS: ACETAMINOPHEN 325 MG TAB PO PRN (15:59)
[2025-03-15 20:44] LABS: Appearance Urine Clear (Clear); Bacteria Urine Automated None Seen (None Seen); Cast Urine Automated 0-2 /lpf (0-2); Epithelial Cell Urine Auto 0-2 /hpf (0-2); Glucose Urine UA Negative (Negative); RBC Urine Automated >20 /hpf (0-2); WBC Urine Automated 0-5 /hpf (0-5)
[2025-03-15] MEDS: POLYETHYLENE (MIRALAX) 17 GM PACK PO PRN (21:22)
[2025-03-15] MEDS: MELATONIN 3 MG TAB PO PRN (22:10)
[2025-03-16 08:02] LABS: Hematocrit (blood only) 30.7 % (37.0-47.0); Hemoglobin 10.1 g/dl (12.0-16.0); Mean Corpuscular Hemoglobin 29.8 pg (25.0-34.0); Mean Corpuscular Volume 90.6 fL (80.0-100.0); Platelet Count 175 K/uL (130-400); RDW Standard Deviation 46.9 fL (36.4-46.3); Red Blood Count 3.39 M/uL (4.20-5.40); White Blood Count 4.14 K/ul (4.8-10.8)
[2025-03-16 08:29] VITALS: RESP 18; TEMP 98.2; O2SAT 96
[2025-03-16 08:37] LABS: Immature Granulocytes # (auto) 0.00 K/uL (0.01-0.20); Immature Granulocytes % (auto) 0.0 %
[2025-03-16 08:41] LABS: Alanine Aminotransferase 16.0 U/L (7-52); Albumin Globulin Ratio 1.5 (0.9-2); Alkaline Phosphatase 55.0 U/L (34-104); Anion Gap 3.0 (3-11); Bilirubin,Total 0.3 mg/dl (0.2-1.0); Blood Urea Nitrogen 10.0 mg/dl (6-23); Calcium 8.0 mg/dl (8.6-10.3); Carbon Dioxide 30.0 mmol/L (21-32); Chloride 111.0 mmol/L (98-107); Creatinine Clr Calc Pharmacy 95.7 ml/min; Globulin 2.0 gm/dl (2.5-4.0); Glucose 89.0 mg/dl (70-99(Fasting)); Magnesium 1.9 mg/dl (1.7-2.4); Potassium 3.7 mmol/L (3.5-5.1); Sodium 144.0 mmol/L (136-145); Total Protein 5.0 gm/dl (6.0-8.3)
[2025-03-16] MEDS: LACTULOSE SYRUP 20 GM/30 ML UDC PO ONE (09:42)
[2025-03-16 13:24] VITALS: BP 83/48
[2025-03-16 14:18] VITALS: PULSE 64
--- NOTE | 2025-03-16 14:44 | Discharge Summary ---
Discharge Summary Date of Service March 16, 2025 Principal Dx & Hospital Course #1 = Principal Diagnosis (1) Symptomatic bradycardia: (2) Sinus pause: (3) GERD (gastroesophageal reflux disease): (4) JUMANA (acute kidney injury): Plan MS Roderick Loera is a 45 yo female with cystocele c/b stress incontinence, ADHD, JARRET, GERD, chronic pain syndrome who presents from outpatient [facility] clinic for syncopal episode and prolonged sinus pause likely 2/2 anesthetic effects, medications, and possible underlying bradycardia. Patient was noted to have a sinus pause and bradycardia. Patient was evaluated by Cardiology and was noted to have appropriate chronotropic response. Patient reports having lower BP at baselin in 90s-100s SBP, also she is on HCTZ for lymphedema. Propranolol was discontinued. HCTZ was discontinued. On day of discharge, patient was ambulating independently and without acute concerns. #Sinus Pause #Sinus Bradycardia -likely multifactorial, in setting of sinus bradycardia, propranolol, anesthetic use propranolol discontinued heart rates in high 50s-mid 60s on discharge Asymptomatic Echocardiogram: Unrevealing TSH normal Follow up with EP Zio Patch #Lymphedema discontinue hctz started 10mg lasix and 10meq potassium PRN for edema when conservative measures to not help #JUMANA -fluids ordered - resolved #Acute Pain, s/p bladder lift procedure, Cystocele #Chronic Pain Syndrome CT abdomen and pelvis: unrevealing 1. Minimal left pleural effusion and mild bilateral lung base atelectasis 2. Small amount of free pelvic fluid, which may be physiologic 3. Possible mild mesenteric adenitis as expected s/p procedure schedule 1000mg tylneol q8 hours tramadol q12 prn for severe pain # Hypotension likely from volume depletion, narcotics possibly contributing BP systolic 80s to 90s; improved to 110s on discharge discontinue hctz #ADHD #JARRET -on ativan, propranolo, abilify, atarax, adderall, sertraline at home discontinue propranolol Notes For Next Care Provider Referral for EP Order Zio patch Medication Changes From Visit Discontinue propranolol Discontinue HCTZ Start lactulose 20mg prn for constipation Start Lasix 10mg and 10meq potassium prn for edema Admission HPI Per Admitting Provider 45 yo female with cystocele c/b stress incontinence, ADHD, JARRET, GERD, chronic pain syndorme who presents from outpatient [facility] clinic for syncopal episode and prolonged sinus pause. Was getting bladder lift procedure for cystocele when her HR dropped to 20s then had prolonged sinus pause with no pulse. Given epi with improved HR and return of pulse. Procedure completed without further complications. No chest compressions given. In the ED, given fluids and admitted to medicine. Patient seen and examined at bedside. Patient is scared today. States she does not remember episode. Began taking propranolol a few weeks ago for anxiety as it was prescribed to her. Takes all medications as prescribed. Has low HR at home. Has been lightheaded on and off for past few weeks. No chest pain, SOB, other symptoms. Has some pain post procedure. No tobacco use, no alcohol use, no drug use, full code. Admission Exam Per Admitting Provider Gen: A&O 3 NAD HEENT: NCAT, EOMI, not icteric. External ears normal. No rhinorrhea. Moist mucous membranes. Neck: Supple, full range of motion, no observable masses, No meningeal sign. Lungs: No Respiratory distress. CV: bradycardic, regular rhythm Abdomen: Soft, nondistended, No rebound tenderness. MSK: No joint swelling, no redness. Skin: No rashes, petechiae, lesions. Normal color per patient. Neuro: Normal Gait, Grossly intact. Psych: Appropriate for situation. Discharge Exam Constitutional WD/WN, vitals as above Respiratory normal respiratory effort, lungs clear to auscultation Cardiovascular RRR, no murmur, no edema rates in 60s Updated Medication List Medication Instructions Recorded Confirmed Type aripiprazole 10 mg tablet 10 mg PO DAILY 03/14/25 03/14/25 History dextroamphetamine-amphetamine 20 20 mg PO DAILY 03/14/25 03/14/25 History mg tablet (Adderall) esomeprazole magnesium 40 mg 40 mg PO DAILY 03/14/25 03/14/25 History capsule,delayed release hydroxyzine HCl 10 mg tablet 10 mg PO TID PRN anxiety 03/14/25 03/14/25 History lorazepam 0.5 mg tablet 0.5 mg PO DAILY PRN Anxiety 03/14/25 03/14/25 History sertraline 50 mg tablet 50 mg PO DAILY 03/14/25 03/14/25 History acetaminophen 500 mg capsule 1,000 mg (2 x 500 mg) PO Q8H PRN 03/16/25 Rx fever 14 days #14 caps furosemide 20 mg tablet (Lasix) 10 mg (1/2 x 20 mg) PO DAILY PRN 03/16/25 Rx edema #15 tabs lactulose 10 gram/15 mL oral 20 g (30 mL) PO DAILY PRN 03/16/25 Rx solution constipation #1,200 mL potassium chloride 10 mEq 10 meq PO DAILY PRN edema #14 tabs 03/16/25 Rx tablet,extended release tramadol 50 mg tablet 50 mg PO Q12H PRN Pain 7 days #14 03/16/25 Rx tabs Hospital Stay Data Consultations 03/14/25 16:11 ED Decision to Admit Stat 03/14/25 16:16 Consult Cardiology Routine 03/15/25 09:50 Consult Urology Routine Diagnostic Imagining Performed 03/15/25 09:50 CT Abd and Pelvis [CT abd pelvis IV con only] Stat Pending Results Patient Have Any Pending Studies at Discharge: No Discharge Instructions Given to Patient (Per Discharging Provider) You were noted to have slow heart rates. You were discontinued off of Propranolol You will follow up with a heart doctor called an patrol officer You will be called to coordinate a heart patch called a "Zio" monitor You were discontinued off of Hydrochlorothiazide. You will be sent with an as needed prescription of Furosemide (Lasix) to use for swelling. You will take a 10meq Potassium tablet with your Furosemide (Lasix) For pain, please take 1000mg tylenol every 8 hours for three more days You will be sent a presciption for Tramadol 50mg to use as needed for severe pain every 12 hours You will be contacted in 24 hours to have a post hospitalization follow up coordinated Total Time Total Time Spent Total Time Spent (In Minutes): 45
[2025-03-16] MEDS: POTASSIUM CHLORIDE CRTAB 20 MEQ TABCR PO STA (15:15)
== END 2025-03-16 16:33 | disposition home or self-care (01) | DRG 309 ==
LOC: 2N 14:36 → ED 14:36 → SUATTDRO 16:14 → 2N 18:04 → SUATTDRO 03-15 13:28